=== PATIENT | male | born 1980 | race Caucasian/White ===

== ENCOUNTER 2022-04-12 17:58 | Emergency (ER) | payer BC ==
[~2022-04-12] VITALS: Ht 180 cm; Wt 72.0 kg
[2022-04-12] MEDS ORDERED: ceFAZolin INJECTION 1,000 MG VIAL IV STA (18:10)
[2022-04-12] MEDS ORDERED: LIDOCAINE 1% INJ 50 ML (XYLOCAINE) VIAL IJ STA (18:10)
--- NOTE | 2022-04-12 18:14 | ED Upper Extremity ---
General Chief Complaint: Laceration Stated Complaint: R THUMB LAC Source: patient History of Present Illness Date Seen by Provider: Apr 12, 2022 Time Seen by Provider: 18:12 Initial Comments 42-year-old male presenting with open wound to his right thumb. 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 He is right-hand dominant. He still has sensation to the tip of his right thumb which is attached. There is exposed joint and bone seen in the right thumb. He has some movement still present of his thumb. His tetanus booster was more than 5 years ago. He denies any allergies to medications. He denies any other injuries. He has increased pain with movement of the thumb Onset: just prior to arrival Severity: severe Pain/Injury Location: right thumb Method of Injury: direct blow Modifying Factors: Worse With Movement Allergies and Home Medications Allergies Coded Allergies: No Known Drug Allergies (Unverified , 04/12/22) Patient Home Medication List Home Medication List Reviewed: Yes Cephalexin (Cephalexin) 500 Mg Capsule, 500 MG PO QID Prescribed by: BRIELLE MCADAMS on 04/12/221939 Hydrocodone/Acetaminophen (Hydrocodone-Acetamin 5-325 mg) 5 Mg-325 Mg Tablet, 1 TAB PO Q6H PRN for PAIN-SEVERE (8-10) Prescribed by: BRIELLE MCADAMS on 04/12/221940 Review of Systems Constitutional: No chills, No fever EENTM: no symptoms reported Respiratory: no symptoms reported Cardiovascular: no symptoms reported Gastrointestinal: no symptoms reported Genitourinary: no symptoms reported Musculoskeletal: see HPI Skin: see HPI Psychiatric/Neurological: Denies Numbness; Tingling (Nearly avulsed segment of the right thumb) Past Bizuggy-Lpfntd-Dazwit Hx Patient Social History Tobacco Use?: No Use of E-Cig and/or Vaping dev: No Substance use?: No Physical Exam Vital Signs Vital Signs - First Documented 04/12/22 18:02 Temp 36.9 Pulse 77 Resp 22 B/P (MAP) 102/66 (78) Pulse Ox 98 O2 Delivery Room Air Capillary Refill : Height, Weight, BMI Height: '" Weight: lbs. oz. kg; BMI Method: General Appearance: WD/WN, mild distress HEENT: PERRL/EOMI, pharynx normal Neck: non-tender, full range of motion, supple, normal inspection Cardiovascular: normal peripheral pulses, regular rate, rhythm Respiratory: chest non-tender, lungs clear, normal breath sounds, no respiratory distress, no accessory muscle use Hand: Right, bone tenderness (Right thumb), deformity (Deformity with open fracture at the DIP of the right thumb), laceration (Laceration will cause an open fracture at the DIP of the right thumb), limited ROM (He still has some flexion and extension of the thumb), nail injury, soft tissue tenderness Neurologic/Psychiatric: snaker II-XII nml as tested, alert, oriented x 3, other (Mild tingling to his tip of the right thumb) Skin: warm/dry Procedures/Interventions Wound Location: Upper Extremities (Right thumb) Wound Length (cm): 3.8 Wound's Depth, Shape: irregular, flap, contused tissue, bone, sub Q Wound Explored: contaminated Irrigated w/ Saline (ccs): 1000 Betadine Prep?: Yes Anesthesia: 1% Lidocaine Volume Anesthetic (ccs): 8 Suture: Ethlion Suture Size: 4-0 Number of Sutures: 5 Layer Closure?: 1 Sterile Dressing Applied?: Yes Progress After obtaining verbal consent from the patient the wound was anesthetized with 8 mL of 1% plain lidocaine. Then using a turnicot additional compression and hemostasis was obtained. The wound was irrigated with 1 L of normal saline with iodine added. After irrigation and cleaning the wound no foreign bodies were seen. The dislocated thumb at the DIP joint was reduced and 4-0 Ethilon stitches were used to approximate the wound edges. A total of 5 simple interrupted stitches were placed. Counseled patient on follow-up and return precautions. Tolerated procedure well without any immediate complication. Placing thumb spica OCL splint and discharged to follow-up with hand surgeon. Progress/Results/Core Measures Results/Orders My Orders Orders - BRIELLE MCADAMS MD Hand 3 View Right (04/12/22 18:10) Ed Iv/Invasive Line Start (04/12/22 18:10) Suture Set At Bedside (04/12/22 18:10) Lidocaine 1% Inj 50 Ml (Xylocaine 1% Inj (04/12/22 18:10) Cefazolin Injection (Ancef Injection) (04/12/22 18:10) Dipht,Pertuss(Acell),Tet Adult (Boostrix (04/12/22 18:15) Finger(S) (04/12/22 19:27) Rx-Hydrocodone/Apap 5-325 Mg (Rx-Vicodin (04/12/22 19:30) Rx-Cephalexin Capsule (Rx-Keflex Capsule (04/12/22 19:27) Ortho Glass (04/12/22 19:28) Ed Ortho/Other Supplies Order (04/12/22 19:28) Wound Dressing-Ed (04/12/22 19:28) Medications Given in ED Current Medications Medications Dose Ordered Sig/Liv Route Start Time Stop Time Status Last Admin Dose Admin Acetaminophen/ Hydrocodone Bitart 1 ea Q6H PRN PO 04/12/22 19:30 04/12/22 19:53 DC 04/12/22 19:49 1 EA Diphtheria/ Tetanus/Acell Pertussis 0.5 ml ONCE ONCE IM 04/12/22 18:15 04/12/22 18:16 DC 04/12/22 18:21 0.5 ML Vital Signs/I&O 04/12/22 04/12/22 18:02 19:49 Temp 36.9 Pulse 77 81 Resp 22 18 B/P (MAP) 102/66 (78) 97/59 Pulse Ox 98 99 O2 Delivery Room Air Room Air Progress Progress Note #1: Progress Note Update his tetanus booster and administer Ancef 1 g IV. Clean and irrigate the wound evaluate for any foreign bodies as well as cleaning the wound out. Placed digital block at 1826 and administered a turnicot to help hold pain medicine in place as well as help with bleeding. Obtain x-rays of the thumb and hand. Progress Note #2: Progress Note X-rays show he has dislocation of the DIP joint of the right thumb as well as he has comminuted fracture of the distal phalanx of the right thumb. These are open with laceration. Since he is right-hand dominant will check in with the hand surgeon to see if he would need to be seen tonight or if he could be followed up through the clinic. [address] Brad Torres and he advised that the wound can be loosely closed and follow-up through the clinic. He could even be seen with a local hand surgeon in that area. Advised that we did not have any orthopedic or plastic surgeons locally at that typically managed hand injuries like this in the past. Will give information about Dr. Torres's clinic and contact number for the clinic. Updated pt and proceeded with wound closure. He tolerated this well without any immediate complication. D/c to home to follow up with Dr. Torres as outpt and call his office first thing in the morning to see when he could be seen in clinic. Diagnostic Imaging Diagonstic Imaging: Xray Plain Films/CT/US/NM/MRI: hand Comments [facility], [place] NAME: IGGY BURNETTE [facility] REC#: [id number] PT STATUS: REG ER : 1980 PHYSICIAN: BRIELLE MCADAMS MD ADMIT DATE: 04/12/22/ER FS Signed Date of Exam:04/12/22 HAND 3 VIEW RIGHT Indication: Thumb injury. Findings: Comminuted intra-articular fractures and dislocation across the interphalangeal joint of the thumb, bony fragmentation involves the distal phalanx greater than the distal head of the proximal phalanx. No dominant retained metallic foreign body. There is marked soft tissue injury. Impression: Comminuted intra-articular fracture dislocation of the interphalangeal joint of the thumb with extensive overlying soft tissue injury. Dictated by: Dictated on workstation # [id number] Dict: 04/12/221837 Trans: 04/12/221848 [facility] [id number] Interpreted by: DAI RAM Electronically signed by: DAI RAM 04/12/221848 Reviewed: Reviewed by Me Diagonstic Imaging: Xray Plain Films/CT/US/NM/MRI: hand (Right thumb) Comments [facility] [place] [place] NAME: IGGY BURNETTE [facility] REC#: [id number] PT STATUS: DEP ER : 1980 PHYSICIAN: BRIELLE MCADAMS MD ADMIT DATE: 04/12/22/ER FS Signed Date of Exam:04/12/22 FINGER(S) FINGER(S) COMPARISON: 04/12/2022 at 6:30 PM INDICATION: Status post reduction TECHNIQUE: 3 views of the right hand and thumb FINDINGS: The comminuted fracture involving the base of the thumb distal phalanx has improved alignment status post reduction. No longer subluxation at the level of the thumb IP joint. Soft tissue irregularity is again noted along the dorsal aspect of the thumb. IMPRESSION: 1. Improved alignment of the thumb distal phalanx fracture status post reduction. Dictated by: Dictated on workstation # [id number] Dict: 04/12/221948 Trans: 04/12/222120 CV [id number] Interpreted by: GENNARO BASSETT MD Electronically signed by: GENNARO BASSETT MD 04/12/222120 Reviewed: Reviewed by Me Departure Impression Primary Impression: Open avulsion fracture of thumb Qualified Codes: S62.501B - Fracture of unspecified phalanx of right thumb, initial encounter for open fracture Additional Impressions: Crushing injury of right thumb, initial encounter Displaced fracture of distal phalanx of right thumb, initial encounter for open fracture Open dislocation of right thumb Qualified Codes: S63.104A - Unspecified dislocation of right thumb, initial encounter; S61.001A - Unspecified open wound of right thumb without damage to nail, initial encounter Disposition: HOME, SELF-CARE Condition: Stable Departure-Patient Inst. Decision time for Depature: 19:32 Referrals: NO,LOCAL PHYSICIAN (PCP/Family) Primary Care Physician Patient Instructions: Splint Care ED, Finger Fracture ED, Wound Care ED Add. Discharge Instructions: Keep your right thumb and hand elevated above heart level to help with throbbing and pain. Take the full course of antibiotics to help prevent infection. Keep the splint clean and dry. Follow-up with hand surgeon about the fracture and injury. Dr. Torres through [facility] that was the hand surgeon I spoke with glorialorena. His offices are located at: [facility] [address] [facility] [address] [place] [address] Phone number [phone] All discharge instructions reviewed with patient and/or family. Voiced understanding. Scripts Hydrocodone/Acetaminophen (Hydrocodone-Acetamin 5-325 mg) 5 Mg-325 Mg Tablet 1 TAB PO Q6H PRN for PAIN-SEVERE (8-10) for 5 Days, #20 TAB 0 Refills Prov: BRIELLE MCADAMS MD 04/12/22 Cephalexin (Cephalexin) 500 Mg Capsule 500 MG PO QID for thumb fracture for 7 Days, #28 CAP 0 Refills Prov: BRIELLE MCADAMS MD 04/12/22 Work/School Note: Work Release Form Date Seen in the Emergency Department: Apr 12, 2022 Return to Work: Apr 19, 2022 Restrictions: Need Release from Doctor Other Restrictions Listed Below: Follow up with Hand Surgeon to see when can return full duty BRIELLE MCADMAS MD Apr 12, 2022 18:14
[2022-04-12] MEDS ORDERED: TETANUS,DIPTH,PERTUSS P/F (BOOSTRIX) 0.5 ML VIAL IM ONE (18:15)
--- NOTE | 2022-04-12 18:41 | Diagnostic Imaging Report ---
Indication: Thumb injury. Findings: Comminuted intra-articular fractures and dislocation across the interphalangeal joint of the thumb, bony fragmentation involves the distal phalanx greater than the distal head of the proximal phalanx. No dominant retained metallic foreign body. There is marked soft tissue injury. Impression: Comminuted intra-articular fracture dislocation of the interphalangeal joint of the thumb with extensive overlying soft tissue injury. Dictated by: Dictated on workstation # [id number]
[2022-04-12] MEDS ORDERED: RX-CEPHALEXIN (KEFLEX) 250 MG CAP PPK#4 PO STA (19:27)
[2022-04-12] MEDS ORDERED: CEPH500C PO (19:40)
[2022-04-12] MEDS ORDERED: ACHD5005 PO (19:40)
[2022-04-12 19:49] VITALS: BP 97/59
--- NOTE | 2022-04-12 20:01 | Diagnostic Imaging Report ---
FINGER(S) COMPARISON: 04/12/2022 at 6:30 PM INDICATION: Status post reduction TECHNIQUE: 3 views of the right hand and thumb FINDINGS: The comminuted fracture involving the base of the thumb distal phalanx has improved alignment status post reduction. No longer subluxation at the level of the thumb IP joint. Soft tissue irregularity is again noted along the dorsal aspect of the thumb. IMPRESSION: 1. Improved alignment of the thumb distal phalanx fracture status post reduction. Dictated by: Dictated on workstation # [id number]
== END 2022-04-12 19:53 | disposition home or self-care (01) ==
LOC: ER FS 18:01
DX: S63.124A Dislocation of interphalangeal joint of right thumb, initial encounter (principal); Z23 Encounter for immunization; W22.8XXA Striking against or struck by other objects, initial encounter
CPT/HCPCS: 73130; 73140; 90715